=== PATIENT | female | born 1965 | race Caucasian/White ===

== ENCOUNTER 2016-12-22 15:25 | Outpatient (CLI) | payer OTHER | END 2016-12-22 15:26 | disposition home or self-care (01) | DX: E03.9 Hypothyroidism, unspecified (principal); Z79.899 Other long term (current) drug therapy ==

== ENCOUNTER 2017-01-08 07:06 | Emergency (ER) | payer OTHER ==
[2017-01-08] MEDS ORDERED: LIDOCAINE VISCOUS 2% 15 ML UDC MM STA (07:51)
[2017-01-08] MEDS ORDERED: MAG HYDROX/AL HYDROX/SIMETH 30 ML UDC PO STA (07:52)
[2017-01-08] MEDS ORDERED: LIDOCAINE VISCOUS 2% 15 ML UDC MM ONE (07:56)
[2017-01-08] MEDS ORDERED: MAG HYDROX/AL HYDROX/SIMETH 30 ML UDC ONE (07:56)
[2017-01-08] MEDS ORDERED: PANTOPRAZOLE 40 MG TABLET PO STA (09:13)
[2017-01-08] MEDS ORDERED: PANTOPRAZOLE 40 MG TABLET ONE ×2 (09:16→09:23)
== END 2017-01-08 09:39 | disposition home or self-care (01) ==
DX: K29.00 Acute gastritis without bleeding (principal); R03.0 Elevated blood-pressure reading, without diagnosis of hypertension; F41.9 Anxiety disorder, unspecified; F32.9 Major depressive disorder, single episode, unspecified; E03.9 Hypothyroidism, unspecified; K21.9 Gastro-esophageal reflux disease without esophagitis; Z87.442 Personal history of urinary calculi
CPT/HCPCS: 36415; 71020; 80053; 81001; 81025; 83690; 84484; 85025; 93005; 93010; 99283; 99284; A9270

== ENCOUNTER 2017-07-29 16:10 | Outpatient (CLI) | payer OTHER ==
[2017-07-29 17:19] LABS: THYROID STIMULATING HORMONE 3.57 uIU/mL (0.34-5.60)
== END 2017-07-29 16:11 | disposition home or self-care (01) ==
LOC: LAB 16:10
PROVIDERS: ATTEND Registered Nurse
DX: F34.89 Other specified persistent mood disorders (principal)
CPT/HCPCS: 36415; 82306; 84436; 84439; 84443

== ENCOUNTER 2017-08-27 11:08 | Outpatient (CLI) | payer BC | END 2017-08-27 11:09 | disposition home or self-care (01) | LOC: LAB 11:08 | PROVIDERS: ATTEND Registered Nurse | DX: N95.1 Menopausal and female climacteric states (principal) | CPT/HCPCS: 36415; 82670; 83001 ==

== ENCOUNTER 2017-09-06 15:07 | Outpatient (CLI) | payer BC ==
--- NOTE | 2017-09-08 15:09 | Mammography Report ---
DIGITAL SCREENING MAMMOGRAM: 09/06/2017 CLINICAL INDICATION: A 51-year-old for screening. COMPARISON: 07/2016, 05/2015, 05/2014, 05/2013, 04/2012, 08/2010 TECHNIQUE: Routine CC and MLO projections were obtained of the breasts. FINDINGS: The breasts again demonstrate heterogeneously dense fibroglandular parenchyma bilaterally. Punctate, typically benign calcifications are present. No suspicious masses, clustered microcalcif ications, or regions of architectural distortion are identified. IMPRESSION: BENIGN FINDINGS. RECOMMENDATION: Routine annual screening unless otherwise clinically indicated. BIRADS CATEGORY 2 - BENIGN FINDINGS. STANDARD QUALIFYING STATEMENTS 1. This examination was reviewed with the aid of Computer-Aided Detection (CAD). 2. A negative or benign imaging report should not delay biopsy if clinically suspicious findings are present. Consider surgical consultation if warranted. More than 5% of cancers are not identified by i maging. 3. Dense breasts may obscure an underlying neoplasm. JOB #: [id number] EXT JOB #:[id number]
== END 2017-09-06 15:08 | disposition home or self-care (01) ==
LOC: DI.N 15:07
PROVIDERS: ATTEND Physician Assistant Medical
DX: Z12.31 Encounter for screening mammogram for malignant neoplasm of breast (principal)
CPT/HCPCS: 77067

== ENCOUNTER 2018-02-21 11:24 | Outpatient (CLI) | payer BC | END 2018-02-21 11:25 | disposition home or self-care (01) | LOC: SC 11:24 | PROVIDERS: ATTEND Internal Medicine Pulmonary Disease | DX: G47.00 Insomnia, unspecified (principal); R06.83 Snoring; G31.84 Mild cognitive impairment of uncertain or unknown etiology; G47.10 Hypersomnia, unspecified | CPT/HCPCS: 99203; 99212 ==

== ENCOUNTER 2018-04-04 19:32 | Outpatient (CLI) | payer BC | END 2018-04-04 19:33 | disposition home or self-care (01) | LOC: SC 19:32 | PROVIDERS: ATTEND Internal Medicine Pulmonary Disease | DX: G47.10 Hypersomnia, unspecified (principal); R06.83 Snoring | CPT/HCPCS: 95810 ==

== ENCOUNTER 2018-09-16 14:46 | Outpatient (CLI) | payer BC ==
--- NOTE | 2018-09-19 09:29 | Mammography Report ---
Reason: SCREENING MAMMO Procedure Date: 09/16/2018 Accession Number: [id number] / [id number] Procedure: MGN - Screening Mammo Dig Bilat CPT Code: FULL RESULT: EXAM: Screening Mammo Dig Bilat DATE: 09/16/2018 3:06 PM CLINICAL HISTORY: Screening encounter. TECHNIQUE: Bilateral CC and MLO views were obtained. COMPARISON: 09/06/2017 through 05/22/2014. FINDINGS: The breasts demonstrate heterogeneously dense fibroglandular parenchyma bilaterally. There are typically benign coarse calcifications bilaterally. No suspicious masses, clustered microcalcifications, or regions of architectural distortion are identified. IMPRESSION: Benign findings RECOMMENDATION: Routine annual screening unless otherwise clinically indicated. BIRADS CATEGORY 2: Benign findings STANDARD QUALIFYING STATEMENTS: 1. This examination was reviewed with the aid of Computer-Aided Detection (CAD). 2. A negative or benign imaging report should not preclude biopsy if clinically suspicious findings are present. 3. Dense breasts may obscure an underlying neoplasm. 4. This examination was reviewed without the aid of 3D breast imaging (tomosynthesis).
== END 2018-09-16 14:47 | disposition home or self-care (01) ==
LOC: DI.N 14:46
PROVIDERS: ATTEND Physician Assistant Medical
DX: Z12.31 Encounter for screening mammogram for malignant neoplasm of breast (principal)
CPT/HCPCS: 77067

== ENCOUNTER 2018-11-12 08:04 | Outpatient (CLI) | payer BC ==
--- NOTE | 2018-11-13 11:24 | Ultrasound Report ---
Reason: LIPOMA Procedure Date: 11/12/2018 Accession Number: [id number] / [id number] Procedure: US - Abdomen Limited CPT Code: FULL RESULT: EXAM: ABDOMEN ULTRASOUND LIMITED EXAM DATE: 11/12/2018 08:15 AM. CLINICAL HISTORY: Lipoma. COMPARISON: ABDOMEN/PELVIS W/O 01/03/2014 9:04 AM. TECHNIQUE: Real-time scanning was performed with static images obtained. FINDINGS: Right upper abdominal wall mass corresponds to an echogenic encapsulated 3.8 x 1.4 x 4.5 cm mass. No vascularity noted. In the left upper quadrant, there is a second echogenic 1.2 x 1.2 x 1.9 cm soft tissue subcutaneous mass. No vascularity. No adenopathy or collections. IMPRESSION: 1. 3.8 x 1.4 x 4.5 cm right upper quadrant and a 1.2 x 1.2 x 1.9 cm left upper quadrant abdominal wall echogenic mass is most compatible with lipomas. 2. No collection or adenopathy. 3. If masses continue to increase in size or become painful, recommend contrast-enhanced MRI examination. RADIA
== END 2018-11-12 08:05 | disposition home or self-care (01) ==
LOC: DI 08:04
PROVIDERS: ATTEND Physician Assistant Medical
DX: D17.1 Benign lipomatous neoplasm of skin and subcutaneous tissue of trunk (principal)
CPT/HCPCS: 76705

== ENCOUNTER 2019-08-25 08:32 | Outpatient (CLI) | payer BC ==
[2019-08-25 13:46] LABS: BASOPHILS # (AUTO) 0.1 10^3/uL (0.0-0.1); BASOPHILS % (AUTO) 1.1 %; EOSINOPHILS # (AUTO) 0.1 10^3/uL (0.0-0.7); EOSINOPHILS % (AUTO) 1.7 %; HGB - HEMOGLOBIN 12.6 g/dL (12.0-16.0); LYMPHOCYTES # (AUTO) 1.7 10^3/uL (1.5-3.5); MEAN CORPUSCULAR HEMOGLOBIN 28.8 pg (27.0-31.0); MEAN CORPUSCULAR HGB CONC 31.1 g/dL (32.0-36.0); MEAN CORPUSCULAR VOLUME 92.7 fL (81.0-99.0); MEAN PLATELET VOLUME 11.4 fL (7.9-10.8); MONOCYTES # (AUTO) 0.3 10^3/uL (0.0-1.0); MONOCYTES % (AUTO) 6.3 %; NEUTROPHILS # (AUTO) 3.1 10^3/uL (1.5-6.6); NEUTROPHILS % (AUTO) 58.2 %; PLT - PLATELET COUNT 270 10^3/uL (130-450); RED BLOOD COUNT 4.37 10^6/uL (4.20-5.40); RED CELL DISTRIBUTION WIDTH 13.9 % (12.0-15.0); WHITE BLOOD COUNT 5.4 x10^3/uL (4.8-10.8)
[2019-08-25 14:14] LABS: ALBUMIN/GLOBULIN RATIO 1.1 (1.0-2.2); ALKALINE PHOSPHATASE 89 IU/L (42-121); ALT ALANINE AMINOTRANSFERASE 15 IU/L (10-60); AST ASPARTATE AMINOTRANSFERASE 15 IU/L (10-42); BILIRUBIN,TOTAL 0.6 mg/dL (0.2-1.0); BUN - BLOOD UREA NITROGEN 25 mg/dL (6-20); CALCIUM 9.3 mg/dL (8.5-10.3); CARBON DIOXIDE - CO2 27 mmol/L (21-32); CHLORIDE 106 mmol/L (101-111); CHOL/HDL RATIO 3.7 (<4.4); CHOLESTEROL 188 mg/dL; CREATININE 1.1 mg/dL (0.4-1.0); GFR - MDRD 52 (>89); GLUCOSE 105 mg/dL (70-100); HDL CHOLESTEROL 51 mg/dL; LDL CHOLESTEROL,CALCULATED 112 mg/dL; LDL/HDL RATIO 2.2 (<4.4); SODIUM 142 mmol/L (135-145); TOTAL PROTEIN 7.7 g/dL (6.7-8.2); VLDL CHOLESTEROL 25 mg/dL
== END 2019-08-25 23:59 | disposition home or self-care (01) ==
LOC: LAB.N 08:32
PROVIDERS: ATTEND Nurse Practitioner
DX: Z00.00 Encounter for general adult medical examination without abnormal findings (principal); Z79.899 Other long term (current) drug therapy; I10 Essential (primary) hypertension; E03.9 Hypothyroidism, unspecified; F32.9 Major depressive disorder, single episode, unspecified
CPT/HCPCS: 36415; 80053; 80061; 82306; 83721; 84443; 85025

== ENCOUNTER 2019-09-22 08:22 | Outpatient (CLI) | payer BC ==
--- NOTE | 2019-09-25 10:58 | Mammography Report ---
Reason: ANNUAL SCREENING SELF REF Procedure Date: 09/22/2019 Accession Number: [id number] / [id number] Procedure: NICHOLAS - Screening Mammo w/Hayden CPT Code: Final Report FULL RESULT: EXAM: Screening Mammo w/Hayden DATE: 09/22/2019 8:42 AM CLINICAL HISTORY: Screening encounter. TECHNIQUE: (B) - Bilateral CC and MLO views were obtained. COMPARISON: 09/16/2018 through 09/16/2010. PARENCHYMAL PATTERN: (D) - The breast(s) demonstrate(s) heterogeneously dense fibroglandular parenchyma. FINDINGS: There are no suspicious masses, calcifications, or areas of distortion. IMPRESSION: Negative examination. BI-RADS category 1. RECOMMENDATION: (ANNUAL) - Recommend routine annual screening mammography. BI-RADS CATEGORY: (1) - Negative. STANDARD QUALIFYING STATEMENTS: 1. This examination was not reviewed with the aid of Computer-Aided Detection (CAD). 2. A negative or benign imaging report should not preclude biopsy if clinically suspicious findings are present. 3. Dense breasts may obscure an underlying neoplasm. 4. This examination was reviewed with the aid of 3D breast imaging (tomosynthesis).
== END 2019-09-22 08:23 | disposition home or self-care (01) ==
LOC: DI 08:22
DX: Z12.31 Encounter for screening mammogram for malignant neoplasm of breast (principal)
CPT/HCPCS: 77063; 77067

== ENCOUNTER 2020-09-19 08:15 | Outpatient (CLI) | payer OTHER ==
--- NOTE | 2020-09-20 08:56 | Mammography Report ---
BILATERAL DIGITAL SCREENING MAMMOGRAM 3D/2D: 09/19/2020 CLINICAL: Routine screening. Comparison is made to exams dated: 09/22/2019 mammogram, 09/16/2018 mammogram, 09/06/2017 mammogram, 07/28/2016 mammogram, 06/13/2015 mammogram, and 05/22/2014 mammogram - [facility]. Th ere are scattered fibroglandular elements in both breasts. No significant masses, calcifications, or other findings are seen in either breast. There has been no significant interval change. IMPRESSION: NEGATIVE There is no mammographic evidence of malignancy. A 1 year screening mammogram is recommended. This exam was interpreted at Station ID: [id number]. NOTE: For mammograms, a report in lay terms will be sent to the patient. Approximately 15% of breast malignancies will not be visualized mammographically. In the management of a palpable breast mass, a negative mammogram must not discourage biopsy of a clinically suspicious lesion. Electronically Signed By: Jake Zhu acr/penrad:09/19/2020 10:52:35 ACR BI-RADS Category 1: Negative 3341F PARENCHYMAL PATTERN: (A) - The breast(s) demonstrate(s) scattered fibroglandular densities. BI-RADS CATEGORY: (1) - 1 RECOMMENDATION: (ANNUAL) - Recommend routine annual screening mammography. [id number] 1 year screening LATERALITY: (B)
== END 2020-09-19 08:16 | disposition home or self-care (01) ==
LOC: DI.N 08:15
DX: Z12.31 Encounter for screening mammogram for malignant neoplasm of breast (principal)

== ENCOUNTER 2021-09-12 06:21 | Day surgery (SDC) | payer OTHER ==
[2021-09-12] MEDS ORDERED: LACTATED RINGERS 1,000 ML IV ONE ×2 (06:41→08:00)
--- NOTE | 2021-09-12 07:06 | ANESTHESIA ---
Pre-Anesthesia VS, & Labs - Diagnosis history of colon polyps - Procedure colonoscopy Vital Signs: Temp Pulse Resp BP Pulse Ox 36.7 C 84 11 L 133/98 H 97 09/12/21 06:30 09/12/21 06:30 09/12/21 06:30 09/12/21 06:30 09/12/21 06:30 Height: 5 ft 7 in Weight (kg): 89 kg Body Mass Index: 30.7 BMI Classification: Obese - NPO >8 hours - Is Patient ?: No Home Medications and Allergies Home Medications: Ambulatory Orders Lisinopril [Zestril] 10 mg PO DAILY 09/10/21 Sertraline [Zoloft] 125 mg PO DAILY 09/10/21 Levothyroxine [Synthroid] 5 mcg PO DAILY 09/12/21 Sucralfate 1 gm PO ACHS PRN 09/12/21 busPIRone [Buspar] 20 mg PO TID 12/28/13 ALPRAZolam [Xanax] 0.5 mg PO ONCE PRN 10/09/16 Multivitamin [Multiple Vitamins] 1 each PO DAILY 10/09/16 Lisinopril [Zestril] 10 mg PO DAILY 09/10/21 Sertraline [Zoloft] 125 mg PO DAILY 09/10/21 Levothyroxine [Synthroid] 5 mcg PO DAILY 09/12/21 Sucralfate 1 gm PO ACHS PRN 09/12/21 Allergies/Adverse Reactions: Allergies Allergy/AdvReac Type Severity Reaction Status Date / Time Penicillins Allergy Mild Rash Verified 09/12/21 06:50 Anes History & Medical History - Anesthetic History Anesthesia Complications: reports: No previous complications - Medical History Cardiovascular: reports: Hypertension Pulmonary: reports: None Gastrointestinal: reports: GERD Urinary: reports: Kidney stones Neuro: reports: None Musculoskeletal: reports: None Endocrine/Autoimmune: reports: HyPOthyroidism Blood Disorders: reports: None Skin: reports: None Smoking Status: Never smoker Psychosocial: reports: Depression, Anxiety History of Cancer?: No - Surgical History Orthopedic: reports: Arthroscopic surgery Exam General: Alert, Oriented x3, Cooperative, No acute distress Dental: WNL Mouth Openin Fingerbreadth Neck Mobility: Reduced Mallampati classification: III Thyromental Distance: 4-6 cm Mental/Cognitive Status: Alert/Oriented X3, Normal for patient Plan Anesthesia Type: Total IV Consent for Procedure(s) Verified and Reviewed: Yes Code Status: Attempt Resuscitation ASA classification: 2-Mild systemic disease Is this case an emergency?: No
[2021-09-12] MEDS ORDERED: PROPOFOL 500 MG/50 ML 500 MG/50 ML VIAL ONE (07:18)
--- NOTE | 2021-09-12 07:28 | HISTORY & PHYSICAL EXAMINATION ---
Chief Complaint - Chief Complaint Chief Complaint: history colon polyps History of Present Illness - History Obtained From Records Reviewed: yes History obtained from: pt Exam Limitations: none - History of Present Illness HPI Comment/Other: Here for 5 year surveillance colonoscopy. No anemia. No gi symptoms.; History - Past Medical History Cardiovascular: reports: Hypertension Respiratory: reports: None Neuro: reports: None Endocrine/Autoimmune: reports: HyPOthyroidism GI: reports: GERD : reports: Kidney stones HEENT: reports: None Psych: reports: Depression, Anxiety Musculoskeletal: reports: None Derm: reports: None MRSA Hx?: No - Past Surgical History Ortho: reports: Arthroscopic surgery Meds/Allgy - Home Medications Home Medications: Ambulatory Orders Medication Instructions Recorded Confirmed busPIRone [Buspar] 20 mg PO TID 12/28/13 09/12/21 ALPRAZolam [Xanax] 0.5 mg PO ONCE PRN 10/09/16 09/12/21 Multivitamin [Multiple Vitamins] 1 each PO DAILY 10/09/16 09/10/21 Lisinopril [Zestril] 10 mg PO DAILY 09/10/21 09/12/21 Sertraline [Zoloft] 125 mg PO DAILY 09/10/21 09/12/21 Levothyroxine [Synthroid] 5 mcg PO DAILY 09/12/21 09/12/21 Sucralfate 1 gm PO ACHS PRN 09/12/21 09/12/21 - Allergies Allergies/Adverse Reactions: Allergies Allergy/AdvReac Type Severity Reaction Status Date / Time Penicillins Allergy Mild Rash Verified 09/12/21 06:50 Review of Systems - Other Findings Other Findings: 10 pt ros as above otherwise unremarkable Exam - Vital Signs Reviewed Vital Signs: Yes Vital Signs: Vital Signs x48h Temp Pulse Resp BP Pulse Ox 09/12/21 06:30 36.7 C 84 11 L 133/98 H 97 - Physical Exam General Appearance: positive: Alert, Mild distress Eyes Bilateral: positive: PERRL, EOMI ENT: positive: No signs of dehydration Neck: positive: No JVD Respiratory: positive: No respiratory distress, Breath sounds nml Cardiovascular: positive: Regular rate & rhythm Abdomen: positive: Non-tender, No distention Neurologic/Psychiatric: positive: Oriented x3 Conclusion/Plan - Problem List (1) History of adenomatous polyp of colon Conclusion/Plan: plan colonoscopy. parq held and consent obtained
[2021-09-12] MEDS ORDERED: LIDOCAINE-MPF 2% 5 ML VIAL ONE (07:49)
[2021-09-12 08:47] VITALS: BP 108/83
--- NOTE | 2021-09-12 08:54 | ANESTHESIA POST OP EVALUATION ---
Anesthesia Post Eval - Post Anesthesia Eval Vitals: Last Vital Signs Temp 36.5 C 09/12/21 08:46 Pulse 76 09/12/21 08:46 Resp 16 09/12/21 08:46 BP 108/83 H 09/12/21 08:46 Pulse Ox 100 09/12/21 08:46 CV Function Including HR & BP: Stable Pain Control: Satisfactory Nausea & Vomiting: Negative Mental Status: Baseline Respiratory Status: Airway Patent Hydration Status: Satisfactory Anesthesia Complications: None
== END 2021-09-12 06:22 | disposition home or self-care (01) ==
LOC: SDS 06:21
PROVIDERS: ATTEND Surgery
PROC: 0DBM8ZX Excision of Descending Colon, Via Natural or Artificial Opening Endoscopic, Diagnostic (ICD-10-PCS; principal; 2021-09-12 07:30)
DX: Z12.11 Encounter for screening for malignant neoplasm of colon (principal); Z86.010 Personal history of colon polyps; E66.9 Obesity, unspecified; Z68.30 Body mass index [BMI] 30.0-30.9, adult; F43.10 Post-traumatic stress disorder, unspecified; F41.9 Anxiety disorder, unspecified
CPT/HCPCS: 45380; J7120

== ENCOUNTER 2021-09-17 09:18 | Outpatient (CLI) | payer OTHER ==
--- NOTE | 2021-09-18 13:28 | Mammography Report ---
BILATERAL DIGITAL SCREENING MAMMOGRAM 3D/2D: 09/17/2021 CLINICAL: Routine screening. Comparison is made to exams dated: 09/19/2020 mammogram, 09/22/2019 mammogram, and 09/16/2018 mammogra m - [facility]. The tissue of both breasts is heterogeneously dense. This may lowe r the sensitivity of mammography. No significant masses, calcifications, or other findings are seen in either breast. There has been no significant interval change. IMPRESSION: NEGATIVE There is no mammographic evidence of malignancy. A 1 year screening mammogram is recommended. This exam was interpreted at Station ID: [id number]. NOTE: For mammograms, a report in lay terms will be sent to the patient. Approximately 15% of breast malignancies will not be visualized mammographically. In the management of a palpable breast mass, a negative mammogram must not discourage biopsy of a clinically suspicious lesion. Electronically Signed By: Markus Olguin M.D. ar/penrad:09/17/2021 10:25:54 ACR BI-RADS Category 1: Negative 3341F PARENCHYMAL PATTERN: (D) - The breast(s) demonstrate(s) heterogeneously dense fibroglandular mauricio hobson. BI-RADS CATEGORY: (1) - 1 RECOMMENDATION: (ANNUAL) - Recommend routine annual screening mammography. [id number] 1 year screening LATERALITY: (B)
== END 2021-09-17 09:19 | disposition home or self-care (01) ==
LOC: DI.N 09:18
DX: Z12.31 Encounter for screening mammogram for malignant neoplasm of breast (principal)

== ENCOUNTER 2022-06-23 19:44 | Emergency (ER) | payer OTHER ==
[2022-06-23 20:10] LABS: BASOPHILS # (AUTO) 0.1 10^3/uL (0.0-0.1); BASOPHILS % (AUTO) 0.9 %; EOSINOPHILS # (AUTO) 0.1 10^3/uL (0.0-0.7); EOSINOPHILS % (AUTO) 1.3 %; HCT - HEMATOCRIT 41.5 % (37.0-47.0); HGB - HEMOGLOBIN 13.8 g/dL (12.0-16.0); LYMPHOCYTES # (AUTO) 2.1 10^3/uL (1.5-3.5); LYMPHOCYTES % (AUTO) 31.3 %; MEAN CORPUSCULAR HEMOGLOBIN 30.7 pg (27.0-31.0); MEAN CORPUSCULAR HGB CONC 33.3 g/dL (32.0-36.0); MEAN CORPUSCULAR VOLUME 92.2 fL (81.0-99.0); MEAN PLATELET VOLUME 9.8 fL (7.9-10.8); MONOCYTES # (AUTO) 0.4 10^3/uL (0.0-1.0); MONOCYTES % (AUTO) 6.5 %; NEUTROPHILS # (AUTO) 4.1 10^3/uL (1.5-6.6); NEUTROPHILS % (AUTO) 59.6 %; PLT - PLATELET COUNT 219 10^3/uL (130-450); RED CELL DISTRIBUTION WIDTH 12.8 % (12.0-15.0); WHITE BLOOD COUNT 6.8 x10^3/uL (4.8-10.8)
[2022-06-23 20:25] LABS: ALBUMIN 4.7 g/dL (3.2-5.5); ALBUMIN/GLOBULIN RATIO 1.3 (1.0-2.2); BILIRUBIN,TOTAL 0.4 mg/dL (0.2-1.0); CALCIUM 9.6 mg/dL (8.5-10.3); CREATININE 1.1 mg/dL (0.4-1.0); POTASSIUM 4.1 mmol/L (3.5-5.0); TOTAL PROTEIN 8.4 g/dL (6.7-8.2)
--- NOTE | 2022-06-23 20:34 | XRAY Report ---
PROCEDURE: Chest 1 View X-Ray INDICATIONS: Chest pain TECHNIQUE: One view of the chest was acquired. COMPARISON: None. FINDINGS: Surgical changes and devices: None. Lungs and pleura: No pleural effusions or pneumothorax. Lungs are clear. Mediastinum: Mediastinal contours appear normal. Heart size is normal. Bones and chest wall: No suspicious bony lesions. Overlying soft tissues appear unremarkable. IMPRESSION: 1. No acute cardiopulmonary disease. Reviewed by: Mack Gunter MD on 06/23/2022 8:33 PM PDT Approved by: Mack Gunter MD on 06/23/2022 8:33 PM PDT Station ID: [id number]
--- NOTE | 2022-06-23 23:21 | ED Physician Documentation ---
History of Present Illness - Stated complaint Stated Complaint: JAW PX,L ARM PX - Chief complaint Chief Complaint: Cardiac - History obtained from History obtained from: Patient - History of Present Illness Timing: Other (various time frames (see narrative, below)) Pain level now: 2 Improved by: no ameliorating factors Worsened by: jaw pain worse with palpation, shoulder pain worse with movement and palpation - Additonal information Additional information: patient with three different c/o (seem to be unrelated to each other) 1) midline chest pain , episodic x months 2) left jaw pain, under/caudal to left mandible, which is tender to palpation, x 4-5 days 3) left shoulder pain, predominantly posterior aspect, which is worse with movement but more so with palpation and she finds palpation of a specific spot causes sudden shooting pain down the LUE. She wonders if these might be related to anxiety. She presents at this time because she was thinking about the three symptoms and became concerned that they might be related and thus would be concerning for a cardiac cause. Review of Systems Cardiac: reports: Chest pain / pressure. denies: Palpitations, Pedal edema, Calf pain Respiratory: reports: Reviewed and negative GI: reports: Reviewed and negative Musculoskeletal: reports: Joint pain (left shoulder). denies: Extremity swelling, Joint swelling Neurologic: denies: Generalized weakness, Focal weakness, Numbness PD PAST MEDICAL HISTORY - Past Medical History Past Medical History: Yes Cardiovascular: Hypertension Respiratory: None Neuro: None Endocrine/Autoimmune: HyPOthyroidism GI: GERD : Kidney stones HEENT: None Psych: Depression, Anxiety Musculoskeletal: None Derm: None - Past Surgical History Ortho: Arthroscopic surgery - Present Medications Home Medications: Ambulatory Orders Medication Instructions Recorded Confirmed busPIRone [Buspar] 20 mg PO TID 12/28/13 09/12/21 ALPRAZolam [Xanax] 0.5 mg PO ONCE PRN 10/09/16 09/12/21 Multivitamin [Multiple Vitamins] 1 each PO DAILY 10/09/16 09/10/21 Lisinopril [Zestril] 10 mg PO DAILY 09/10/21 09/12/21 Sertraline [Zoloft] 125 mg PO DAILY 09/10/21 09/12/21 Levothyroxine [Synthroid] 5 mcg PO DAILY 09/12/21 09/12/21 Sucralfate 1 gm PO ACHS PRN 09/12/21 09/12/21 Cyclobenzaprine [Flexeril] 10 mg PO TID PRN 6 Days #18 tablet 06/23/22 - Allergies Allergies/Adverse Reactions: Allergies Allergy/AdvReac Type Severity Reaction Status Date / Time Penicillins Allergy Mild Rash Verified 06/23/22 19:54 - Social History Does the pt smoke?: No Smoking Status: Never smoker Does the pt drink ETOH?: No Does the pt have substance abuse?: No - Immunizations Immunizations are current?: Yes PD ED PE NORMAL - Vitals Vital signs reviewed: Yes - General General: Alert and oriented X 3, No acute distress, Well developed/nourished - Neck Neck: Supple, no meningeal sign - Cardiac Cardiac: RRR, No murmur, No gallop, No rub - Respiratory Respiratory: No respiratory distress, Clear bilaterally - Abdomen Abdomen: Soft, Non tender - Derm Derm: Normal color, Warm and dry - Extremities Extremities: No edema - Neuro Neuro: Alert and oriented X 3 Results - Vitals Vitals: Vital Signs - 24 hr 06/23/22 06/23/22 22:41 23:49 Temperature 36.6 C 36.6 C Heart Rate 69 68 Respiratory 12 14 Rate Blood Pressure 136/86 H 135/81 H O2 Saturation 100 99 Oxygen O2 Source Room air - EKG (time done) No standard instances Rate: Rate (enter#) (72) Rhythm: NSR [place]: Normal Intervals: Normal [place] QRS: Normal Ischemia: Normal ST segments, Q waves (V3, V4) - Labs Labs: Laboratory Tests 06/23/22 06/23/22 06/23/22 20:06 20:06 20:06 WBC 6.8 RBC 4.50 Hgb 13.8 Hct 41.5 MCV 92.2 MCH 30.7 MCHC 33.3 RDW 12.8 Plt Count 219 MPV 9.8 Neut # (Auto) 4.1 Lymph # (Auto) 2.1 [place] # (Auto) 0.4 Eos # (Auto) 0.1 Baso # (Auto) 0.1 Absolute Nucleated RBC 0.00 Nucleated RBC % 0.0 Sodium 143 Potassium 4.1 Chloride 105 Carbon Dioxide 29 Anion Gap 9.0 BUN 30 H Creatinine 1.1 H Estimated GFR (MDRD) 51 L Glucose 95 Calcium 9.6 Total Bilirubin 0.4 AST 15 ALT 14 Alkaline Phosphatase 64 Troponin I High Sens 2.7 Total Protein 8.4 H Albumin 4.7 Globulin 3.7 Albumin/Globulin Ratio 1.3 Lipase 40 - Rads (name of study) chest xray Radiology: Prelim report reviewed, See rad report PD MEDICAL DECISION MAKING - ED course Complexity details: reviewed results, re-evaluated patient, considered differential, d/w patient ED course: unremarkable blood test results including hs-cTn. Mildly elevated bun/creatinine, comparable to previous (2019). No acute findings on EKG (Q V3, V4 but no ST changes). Her chest pain does not radiate to jaw and shoulder; rather, the jaw and shoulder pain are completely reproducible with palpation (and shoulder also with movement), and the chest pain onset does not coincide in onset nor episodes with the jaw and shoulder pain. Nonetheless, cardiac workup is appropriate for the age and chest pain alone, but these results, as above, are reassuring. I reviewed test results with patient, advised of lack of diagnostic findings, advised her to follow up with primary care provider, and return precautions discussed Departure - Departure Disposition: 01 Home, Self Care Clinical Impression: Muscle spasms of neck Chest pain Qualifiers: Chest pain type: unspecified Qualified Code(s): R07.9 - Chest pain, unspecified Condition: Good Instructions: ED Chest Pain Atypical Unkn Cause, ED Spasm Neck No Injury Prescriptions: Cyclobenzaprine [Flexeril] 10 mg PO TID PRN 6 Days #18 tablet PRN Reason: Spasms Comments: A prescription for cyclobenzaprine (a muscle relaxer) has been electronically submitted to [facility] pharmacy in [place]. You can use this INSTEAD of the methacarbamol. The results of tonight's tests are reassuring; there are no concerning findings on EKG, chest xray, and blood tests. Follow up with your primary care provider for reevaluation within 3-5 days Discharge Date/Time: 06/23/22 23:49
[2022-06-23] MEDS ORDERED: CYCLOBENZAPRINE 10 MG TABLET PO STA (23:40)
[2022-06-23 23:50] VITALS: BP 135/81
== END 2022-06-23 23:49 | disposition home or self-care (01) ==
LOC: ED 19:44
DX: M62.838 Other muscle spasm (principal); R07.9 Chest pain, unspecified; M25.512 Pain in left shoulder; R68.84 Jaw pain
CPT/HCPCS: 36415; 71045; 80053; 83690; 84484; 85025; 93005; 99284; A9270

== ENCOUNTER 2022-07-05 09:55 | Emergency (ER) | payer OTHER ==
[2022-07-05 10:43] LABS: BASOPHILS # (AUTO) 0.1 10^3/uL (0.0-0.1); EOSINOPHILS # (AUTO) 0.1 10^3/uL (0.0-0.7); EOSINOPHILS % (AUTO) 1.7 %; HCT - HEMATOCRIT 39.2 % (37.0-47.0); HGB - HEMOGLOBIN 13.2 g/dL (12.0-16.0); LYMPHOCYTES # (AUTO) 1.5 10^3/uL (1.5-3.5); LYMPHOCYTES % (AUTO) 30.4 %; MEAN CORPUSCULAR HEMOGLOBIN 30.5 pg (27.0-31.0); MEAN CORPUSCULAR HGB CONC 33.7 g/dL (32.0-36.0); MEAN CORPUSCULAR VOLUME 90.5 fL (81.0-99.0); MEAN PLATELET VOLUME 10.7 fL (7.9-10.8); MONOCYTES # (AUTO) 0.3 10^3/uL (0.0-1.0); MONOCYTES % (AUTO) 5.2 %; NEUTROPHILS % (AUTO) 61.3 %; PLT - PLATELET COUNT 186 10^3/uL (130-450); RED BLOOD COUNT 4.33 10^6/uL (4.20-5.40); RED CELL DISTRIBUTION WIDTH 12.7 % (12.0-15.0); WHITE BLOOD COUNT 4.8 x10^3/uL (4.8-10.8)
[2022-07-05] MEDS ORDERED: SODIUM CHLORIDE 0.9% 1,000 ML IV STA (10:46)
[2022-07-05] MEDS ORDERED: LORazepam 2 MG/ML VIAL IVP STA (10:46)
[2022-07-05] MEDS ORDERED: ASPIRIN CHEW 81 MG TABLET PO STA (10:47)
[2022-07-05 11:06] LABS: ALBUMIN 4.1 g/dL (3.2-5.5); ALBUMIN/GLOBULIN RATIO 1.2 (1.0-2.2); BILIRUBIN,TOTAL 0.4 mg/dL (0.2-1.0); CALCIUM 9.1 mg/dL (8.5-10.3); CREATININE 0.9 mg/dL (0.4-1.0); POTASSIUM 3.9 mmol/L (3.5-5.0); TOTAL PROTEIN 7.5 g/dL (6.7-8.2)
[2022-07-05] MEDS ORDERED: ASPIRIN CHEW 81 MG TABLET ONE (11:31)
[2022-07-05 12:42] VITALS: BP 110/65
--- NOTE | 2022-07-05 12:59 | ED Physician Documentation ---
PD HPI SYNCOPE - Stated complaint Stated Complaint: LOC - Chief complaint Chief Complaint: Neuro - History obtained from History obtained from: Patient - Additional information Additional information: Patient comes emergency department chief complaint of syncopal episode that happened today. She was up on her feet but had not just gotten up. She has been under a lot of stress and found out her daughter was going to the emergency department. She and her were getting on a call with the daughter when the patient suddenly began to feel lightheaded and's wound. She was able to be lowered to the ground without being injured. She denies any chest pain, shortness of breath, or palpitations. She states that right now she just feels tired. The patient has a longstanding history of heavy stress and anxiety. No other complaints at this time. No cardiac issues. No diabetes. Review of Systems Ten Systems: 10 systems reviewed and negative Constitutional: reports: Reviewed and negative Eyes: reports: Reviewed and negative Ears: reports: Reviewed and negative Nose: reports: Reviewed and negative Throat: reports: Reviewed and negative Cardiac: reports: Reviewed and negative Respiratory: reports: Reviewed and negative GI: reports: Reviewed and negative : reports: Reviewed and negative Skin: reports: Reviewed and negative Musculoskeletal: reports: Reviewed and negative Neurologic: reports: Syncope Psychiatric: reports: Reviewed and negative Endocrine: reports: Reviewed and negative Immunocompromised: reports: Reviewed and negative PD PAST MEDICAL HISTORY - Past Medical History Cardiovascular: Hypertension Respiratory: None Neuro: None Endocrine/Autoimmune: HyPOthyroidism GI: GERD : Kidney stones HEENT: None Psych: Depression, Anxiety Musculoskeletal: None Derm: None - Past Surgical History Ortho: Arthroscopic surgery - Present Medications Home Medications: Ambulatory Orders Medication Instructions Recorded Confirmed busPIRone [Buspar] 20 mg PO TID 12/28/13 09/12/21 ALPRAZolam [Xanax] 0.5 mg PO ONCE PRN 10/09/16 09/12/21 Multivitamin [Multiple Vitamins] 1 each PO DAILY 10/09/16 09/10/21 Lisinopril [Zestril] 10 mg PO DAILY 09/10/21 09/12/21 Sertraline [Zoloft] 125 mg PO DAILY 09/10/21 09/12/21 Levothyroxine [Synthroid] 5 mcg PO DAILY 09/12/21 09/12/21 Sucralfate 1 gm PO ACHS PRN 09/12/21 09/12/21 Cyclobenzaprine [Flexeril] 10 mg PO TID PRN 6 Days #18 tablet 06/23/22 - Allergies Allergies/Adverse Reactions: Allergies Allergy/AdvReac Type Severity Reaction Status Date / Time Penicillins Allergy Mild Rash Verified 06/23/22 19:54 - Social History Does the pt smoke?: No Smoking Status: Never smoker Does the pt drink ETOH?: No Does the pt have substance abuse?: No - Immunizations Immunizations are current?: Yes PD ED PE NORMAL - Vitals Vital signs reviewed: Yes - General General: Alert and oriented X 3, No acute distress, Well developed/nourished - HEENT HEENT: Atraumatic, PERRL, EOMI, Moist mucous membranes - Neck Neck: Supple, no meningeal sign - Cardiac Cardiac: RRR, No murmur, Strong equal pulses - Respiratory Respiratory: No respiratory distress, Clear bilaterally - Abdomen Abdomen: Soft, Non tender, Non distended - Derm Derm: Normal color, Warm and dry, No rash - Extremities Extremities: No deformity, No edema - Neuro Neuro: Alert and oriented X 3, netbackup administrator 2-12 intact, Normal speech - Psych Psych: Other (Anxious, tearful) Results - Vitals Vitals: Oxygen O2 Source Room air - EKG (time done) 1004 Rate: Rate (enter#) (83) Rhythm: NSR [place]: LAD (Borderline) Intervals: Normal MA QRS: Normal Ischemia: Normal ST segments Compare to prior EKG: Old EKG unavailable Computer interpretation: Agree with computer - Labs Labs: Laboratory Tests 07/05/22 07/05/22 07/05/22 10:27 10:27 10:27 WBC 4.8 RBC 4.33 Hgb 13.2 Hct 39.2 MCV 90.5 MCH 30.5 MCHC 33.7 RDW 12.7 Plt Count 186 MPV 10.7 Neut # (Auto) 3.0 Lymph # (Auto) 1.5 Todd # (Auto) 0.3 Eos # (Auto) 0.1 Baso # (Auto) 0.1 Absolute Nucleated RBC 0.00 Nucleated RBC % 0.0 Sodium 143 Potassium 3.9 Chloride 110 Carbon Dioxide 27 Anion Gap 6.0 BUN 25 H Creatinine 0.9 Estimated GFR (MDRD) 65 L Glucose 103 H Calcium 9.1 Total Bilirubin 0.4 AST 15 ALT 12 Alkaline Phosphatase 54 Troponin I High Sens 2.4 Total Protein 7.5 Albumin 4.1 Globulin 3.4 Albumin/Globulin Ratio 1.2 Lipase 36 07/05/22 11:59 WBC RBC Hgb Hct MCV MCH MCHC RDW Plt Count MPV Neut # (Auto) Lymph # (Auto) Todd # (Auto) Eos # (Auto) Baso # (Auto) Absolute Nucleated RBC Nucleated RBC % Sodium Potassium Chloride Carbon Dioxide Anion Gap BUN Creatinine Estimated GFR (MDRD) Glucose Calcium Total Bilirubin AST ALT Alkaline Phosphatase Troponin I High Sens < 2.3 L Total Protein Albumin Globulin Albumin/Globulin Ratio Lipase PD MEDICAL DECISION MAKING - ED course Complexity details: reviewed results, re-evaluated patient, considered differential, d/w patient ED course: The patient was worked up with labs including repeat troponin and EKG which was unremarkable. She was given IV fluids. The patient was doing well and I did not find an emergent cause of her symptoms. We have discussed the need for follow-up if she has any further fainting episodes And the possibility of having an event monitor and possibly stress test. We have discussed the usual indications for return. Departure - Departure Disposition: 01 Home, Self Care Clinical Impression: Syncope and collapse, Anxiety Condition: Stable Instructions: Syncope Comments: Your labs and EKG look good today. It is not clear what caused you to faint. Could be a combination of some low-lying dehydration as well as the stress you have been under. However, it is important that you follow-up with your primary doctor to discuss wearing an event monitor. It is also important that you get your follow-up stress test scheduled, even if it is a few weeks from now, so you can close the loop on any question of underlying coronary artery disease. At this point in time, your symptoms are very atypical for that and you are cleared to proceed with outpatient work-up. If you develop any more severe symptoms, you may return to the emergency department anytime. Discharge Date/Time: 07/05/22 13:25
== END 2022-07-05 13:25 | disposition home or self-care (01) ==
LOC: ED 09:55
DX: R55 Syncope and collapse (principal); F41.9 Anxiety disorder, unspecified; I10 Essential (primary) hypertension
CPT/HCPCS: 36415; 80053; 83690; 84484; 85025; 93005; 96374; 99283; 99284; A9270; J2060

== ENCOUNTER 2022-09-30 08:15 | Outpatient (CLI) | payer OTHER ==
--- NOTE | 2022-10-01 10:59 | Mammography Report ---
BILATERAL DIGITAL SCREENING MAMMOGRAM 3D/2D: 09/30/2022 CLINICAL: Routine screening. Comparison is made to exams dated: 09/17/2021 mammogram, 09/19/2020 mammogram, 09/22/2019 mammogram, mammogram, 09/06/2017 mammogram, and 07/28/2016 mammogram - [facility]. Both breasts are heterogeneously dense, which may obscure small masses (category c / 51-75% glandular tissue). No significant masses, calcifications, or other findings are seen in either breast. There has been no significant interval change. IMPRESSION: NEGATIVE There is no mammographic evidence of malignancy. A 1 year screening mammogram is recommended. Based on the Tyrer Cuzick model (a risk assessment model) the patients lifetime risk is 11.7% and he r 10 year risk is 4.1%. According to the ACR, ACS, and NCCN guidelines, an annual breast MRI exam tulio ng with mammogram is recommended if the patients lifetime risk is 20% or greater. This exam was interpreted at Station ID: [id number]. NOTE: For mammograms, a report in lay terms will be sent to the patient. Approximately 15% of breast malignancies will not be visualized mammographically. In the management of a palpable breast mass, a negative mammogram must not discourage biopsy of a clinically suspicious lesion. Electronically Signed By: Juliocesar barnett/penrad:09/30/2022 10:54:42 ACR BI-RADS Category 1: Negative 3341F PARENCHYMAL PATTERN: (D) - The breast(s) demonstrate(s) heterogeneously dense fibroglandular mauricio hobson. BI-RADS CATEGORY: (1) - 1 RECOMMENDATION: (ANNUAL) - Recommend routine annual screening mammography. 20231001 1 year screening LATERALITY: (B)
== END 2022-09-30 08:16 | disposition home or self-care (01) ==
LOC: DI.N 08:15
DX: Z12.31 Encounter for screening mammogram for malignant neoplasm of breast (principal)

== ENCOUNTER 2023-06-02 12:36 | Emergency (ER) | payer OTHER ==
[2023-06-02 13:01] VITALS: O2SAT 100
[2023-06-02 13:15] LABS: BASOPHILS # (AUTO) 0.1 10^3/uL (0.0-0.1); EOSINOPHILS # (AUTO) 0.1 10^3/uL (0.0-0.7); EOSINOPHILS % (AUTO) 1.6 %; HCT - HEMATOCRIT 40.8 % (37.0-47.0); HGB - HEMOGLOBIN 13.3 g/dL (12.0-16.0); LYMPHOCYTES # (AUTO) 1.2 10^3/uL (1.5-3.5); LYMPHOCYTES % (AUTO) 23.8 %; MEAN CORPUSCULAR HEMOGLOBIN 30.1 pg (27.0-31.0); MEAN CORPUSCULAR HGB CONC 32.6 g/dL (32.0-36.0); MEAN CORPUSCULAR VOLUME 92.3 fL (81.0-99.0); MONOCYTES # (AUTO) 0.4 10^3/uL (0.0-1.0); MONOCYTES % (AUTO) 8.4 %; NEUTROPHILS # (AUTO) 3.2 10^3/uL (1.5-6.6); NEUTROPHILS % (AUTO) 64.4 %; PLT - PLATELET COUNT 228 10^3/uL (130-450); RED BLOOD COUNT 4.42 10^6/uL (4.20-5.40); RED CELL DISTRIBUTION WIDTH 13.4 % (12.0-15.0); WHITE BLOOD COUNT 4.9 x10^3/uL (4.8-10.8)
[2023-06-02 13:28] LABS: ALBUMIN/GLOBULIN RATIO 1.1 (1.0-2.2); BILIRUBIN,TOTAL 0.5 mg/dL (0.2-1.0); CALCIUM 9.1 mg/dL (8.5-10.3); POTASSIUM 4.5 mmol/L (3.5-5.0); TOTAL PROTEIN 7.7 g/dL (6.7-8.2)
--- NOTE | 2023-06-02 13:29 | XRAY Report ---
PROCEDURE: Chest 1 View X-Ray INDICATIONS: Chest Pain TECHNIQUE: One view of the chest was acquired. COMPARISON: 06/23/2022 FINDINGS: Surgical changes and devices: None. Lungs and pleura: No pleural effusions or pneumothorax. Lungs are clear. Mediastinum: Mediastinal contours appear normal. Heart size is normal. Bones and chest wall: No suspicious bony lesions. Overlying soft tissues appear unremarkable. IMPRESSION: No acute cardiopulmonary process. Reviewed by: Maynor Sewell MD on 06/02/2023 1:28 PM PDT Approved by: Maynor Sewell MD on 06/02/2023 1:28 PM PDT Station ID: [id number]
[2023-06-02 13:47] LABS: TROPONIN I HIGH SENSITIVITY 2.9 ng/L (2.3-14.8)
--- NOTE | 2023-06-02 14:22 | ED Physician Documentation ---
History of Present Illness - Stated complaint Stated Complaint: PASSED OUT - Chief complaint Chief Complaint: Neuro - Additonal information Additional information: 57-year-old female presents emergency department for evaluation of a syncopal episode today while standing outside in the hot sun at latter day. This is her third syncopal episode in her lifetime. She has historically been evaluated by linux admin engineer for her syncope and has worn a Holter monitor twice. She reports that they have found brief episodes of SVT and she is being followed by an chip drier for this. She is not yet on any rate control agents. She also has not history that includes anxiety and panic attacks which have precipitated some fainting episodes. She does report she is under a lot of stress. Today she was feeling off at latter day but denied chest pain or palpitations. States she has been outside a lot the last few days does not think she ate or drank enough. While standing for about 20 minutes in the hot sun she began to feel as though she was going to faint and then was helped to the ground where she had a lapse in consciousness lasting about 2 minutes. There were no reports of seizure-like activity on the scene. Review of Systems Constitutional: denies: Fever Cardiac: denies: Chest pain / pressure, Palpitations, Pedal edema, Calf pain Respiratory: reports: Reviewed and negative : reports: Dysuria Skin: reports: Reviewed and negative Neurologic: reports: Syncope. denies: Generalized weakness, Focal weakness, Numbness, Seizure, Confused, Headache, Head injury, LOC PD PAST MEDICAL HISTORY - Past Medical History Cardiovascular: Hypertension Respiratory: None Neuro: None Endocrine/Autoimmune: HyPOthyroidism GI: GERD : Kidney stones HEENT: None Psych: Depression, Anxiety Musculoskeletal: None Derm: None - Past Surgical History Past Surgical History: No Ortho: Arthroscopic surgery - Present Medications Home Medications: Ambulatory Orders Medication Instructions Recorded Confirmed busPIRone [Buspar] 20 mg PO TID 12/28/13 06/02/23 ALPRAZolam [Xanax] 1 mg PO BID 10/09/16 06/02/23 Multivitamin [Multiple Vitamins] 1 each PO DAILY 10/09/16 06/02/23 Lisinopril [Zestril] 10 mg PO DAILY 09/10/21 06/02/23 Sertraline [Zoloft] 125 mg PO DAILY 09/10/21 06/02/23 Levothyroxine [Synthroid] 100 mcg PO DAILY 09/12/21 06/02/23 Sucralfate 1 gm PO ACHS PRN 09/12/21 06/02/23 Dextroamphetamine/Amphetamine 10 mg PO DAILY 06/02/23 06/02/23 [Adderall 10 mg Tablet] methocarbamoL [Methocarbamol] 1,000 mg PO BID PRN 06/02/23 06/02/23 - Allergies Allergies/Adverse Reactions: Allergies Allergy/AdvReac Type Severity Reaction Status Date / Time Penicillins Allergy Mild Rash Verified 06/02/23 12:53 - Social History Does the pt smoke?: No Smoking Status: Never smoker Does the pt drink ETOH?: No Does the pt have substance abuse?: No - Immunizations Immunizations are current?: Yes - POLST Patient has POLST: No PD ED PE NORMAL - General General: Alert and oriented X 3, No acute distress - HEENT HEENT: PERRL - Neck Neck: Supple, no meningeal sign - Cardiac Cardiac: RRR, No murmur - Respiratory Respiratory: No respiratory distress, Clear bilaterally - Abdomen Abdomen: Normal bowel sounds, Soft - Back Back: No CVA TTP - Derm Derm: Normal color, Warm and dry, No rash - Extremities Extremities: No deformity - Neuro Neuro: Alert and oriented X 3, gift officer 2-12 intact Eye Opening: Spontaneous Motor: Obeys Commands Verbal: Oriented GCS Score: 15 Results - Vitals Vitals: Vital Signs - 24 hr 06/02/23 06/02/23 06/02/23 12:46 13:45 13:54 Temperature 36.3 C L Heart Rate 85 78 Heart Rate [ 78 Sitting] Heart Rate [ 77 Standing] Heart Rate [ 75 Supine] Respiratory 16 15 Rate Blood Pressure 123/93 H 122/92 H Blood Pressure 122/87 H [Sitting] Blood Pressure 126/96 H [Standing] Blood Pressure 125/85 H [Supine] O2 Saturation 100 100 Oxygen O2 Source Room air - EKG (time done) 1327 EKG releavant findings:: EKG personally interpreted by author of this note. Relevant findings are: Rate: Rate (enter#) (76) Rhythm: NSR [place]: Anterior hemiblock Intervals: Normal MD. No: Prolonged QT QRS: Normal Ischemia: Q waves (v2-5) Compare to prior EKG: Unchanged from prior EKG Computer interpretation: Agree with computer - Labs Labs: Laboratory Tests 06/02/23 06/02/23 06/02/23 12:58 13:09 13:09 WBC 4.9 RBC 4.42 Hgb 13.3 Hct 40.8 MCV 92.3 MCH 30.1 MCHC 32.6 RDW 13.4 Plt Count 228 MPV 10.0 Neut # (Auto) 3.2 Lymph # (Auto) 1.2 L [place] # (Auto) 0.4 Eos # (Auto) 0.1 Baso # (Auto) 0.1 Absolute Nucleated RBC 0.00 Nucleated RBC % 0.0 Sodium 138 Potassium 4.5 Chloride 104 Carbon Dioxide 26 Anion Gap 8.0 BUN 24 H Creatinine 1.0 Estimated GFR (MDRD) 57 L Glucose 106 H POC Whole Bld Glucose 105 H Calcium 9.1 Total Bilirubin 0.5 AST 20 ALT 18 Alkaline Phosphatase 65 Troponin I High Sens 2.9 Total Protein 7.7 Albumin 4.0 Globulin 3.7 Albumin/Globulin Ratio 1.1 Lipase 35 PD Medical Decision Making - ED course Complexity details: reviewed results, re-evaluated patient, considered differential, d/w patient ED course: Well-appearing female presents for evaluation of syncopal episode. Has been seen for this similarly in the past. Also being evaluated by linux admin engineer and chip drier for Holter monitor findings that did find brief episodes of SVT. On presentation the emergency department she is alert and well-appearing. No focal deficits. GCS of 15. Her vital signs today in the emergency department are without acute worrisome abnormality. No tachycardia or hypotension. Orthostatics were negative. My tradition of her EKG is no ischemic findings and essentially unchanged from the most recent one completed in June of this year. We did obtain CBC, electrolytes and troponin which were all essentially negative. A chest x-ray was without findings suggest pneumonia pneumothorax or pleural effusion. By Wells criteria low risk for PE While here on the monitor in the emergency department patient has been without any arrhythmia or ectopy. At this point she is stable for discharge home and is advised to follow closely with her chip drier for longer-term evaluation and management of her syncope which may be related to SVT or secondary to her anxiety and panic attacks. The usual emergent return precautions worsening symptoms was discussed. Departure - Departure Disposition: 01 Home, Self Care Clinical Impression: Syncope and collapse Condition: Stable Comments: Marysol you were seen today for syncope. Your EKG is essentially unchanged from previous and all your labs today are normal. Your chest x-ray was also essentially normal. We did check your orthostatic vital signs in different positions and found no changes. While here in the emergency department you have been on the monitor and there have not been any abnormal electrical activity of the heart noted. At this time I feel is important you continue to follow closely with your chip drier for longer-term evaluation of your fainting. This may be related to brief episodes of SVT or it could also be related to your anxiety and panic attacks. Continue to follow closely with your psychiatrist. Return immediately to the ER if you have any sudden severe chest pain, shortness of air or worsening symptoms.
[2023-06-02 14:38] VITALS: BP 122/99
== END 2023-06-02 14:48 | disposition home or self-care (01) ==
LOC: ED 12:36
DX: R55 Syncope and collapse (principal); F41.9 Anxiety disorder, unspecified
CPT/HCPCS: 36415; 80053; 83690; 84484; 85025; 93005; 99283; 99284

== ENCOUNTER 2024-03-02 08:00 | Outpatient (CLI) | payer OTHER | END 2024-03-02 23:59 | disposition home or self-care (01) | LOC: LAB.N 08:00 | PROVIDERS: ATTEND Physician Assistant Medical | DX: N39.0 Urinary tract infection, site not specified (principal) | CPT/HCPCS: 87086; 87181 ==